=== PATIENT | female | born 1955 | race Caucasian/White ===

== ENCOUNTER 2021-01-28 01:35 | Outpatient (CLI) | payer MEDICARE, BC, SELFPAY ==
--- NOTE | 2021-01-28 09:24 | DI.RAD_ITS ---
Exam(s) XR HIP RT COMPLETE AP PELVIS EXAM: XR HIP RT COMPLETE AP PELVIS CLINICAL HISTORY: CHRONIC RT HIP PAIN, M25.551,G89.29,ASSESS OA. TECHNIQUE: 2D digital imaging was performed. COMPARISON: No exams were available for comparison FINDINGS: In the right hip there is mild joint space narrowing and bony hypertrophy. No acute fracture, disloc ation or lytic or sclerotic lesion is seen. Soft tissues are unremarkable. IMPRESSION: Mild degenerative changes of the right hip. DATA REPOSITORY: RADIATION DOSE DELIVERED:
== END 2021-01-28 01:55 ==
PROVIDERS: PCP Internal Medicine; Visit Provider Internal Medicine
DX: M16.11 Unilateral primary osteoarthritis, right hip (principal)
CPT/HCPCS: 73502